=== PATIENT | female | born 1995 | race Caucasian/White ===

== ENCOUNTER 2024-12-24 17:42 | Emergency (ER) | payer OTHER, SELFPAY ==
[2024-12-24] VITALS (7 sets, daily range): BP systolic 110–127; BP diastolic 62–81; PULSE 59–77; RESP 16; TEMP 36.2; O2SAT 97–100; BMI 22.3
--- NOTE | 2024-12-24 18:00 | DI.RAD.S_ITS ---
PROCEDURE: XR CHEST 1V INDICATIONS: Chest Pain TECHNIQUE: One view of the chest was acquired. COMPARISON: [facility], CR, XR CHEST 2V, 03/09/2024, 9:42. FINDINGS: Surgical changes and devices: None. Lungs and pleura: Lungs are clear. No pleural effusions or pneumothorax. Mediastinum: Mediastinal contours appear normal. Heart size is normal. Bones and chest wall: No suspicious bony lesions. Overlying soft tissues appear unremarkable. IMPRESSION: No acute cardiopulmonary abnormality is seen. Dictated by: Brigida Massey M.D. on 12/24/2024 at 17:23 Approved by: Brigida Massey M.D. on 12/24/2024 at 17:24
--- NOTE | 2024-12-24 20:19 | ED.GENADULT ---
HPI - General Adult General Chief complaint: Syncope Stated complaint: light headed lost hearing nauseas head ache Time Seen by Provider: 12/24/24 18:10 History of Present Illness HPI narrative: Otherwise healthy 29-year-old young woman took a long hot shower and had a near syncopal episode when getting out of the shower today. Tunnel vision, loss of hearing, she did not fall but once she was helped to the floor she was feeling better. She had eaten prior to the episode. She has had similar episodes in the past some associated with exercise some associated with showers, hot tubs, bath tubs. She is on Depo and does not believe that she is . No fevers cough or chills. She has been training quite a bit recently for a [employer] next week. No chest pain, palpitations, dyspnea. No other complaints or concerns at this time Related Data Allergies Allergy/AdvReac Type Severity Reaction Status Date / Time No Known Drug Allergies Allergy Verified 12/24/24 17:57 Review of Systems Review of Systems Narrative: Pertinent positive and negative findings as per HPI Exam Initial Vital Signs Initial Vital Signs: Vital Signs Temperature 97.2 F L 12/24/24 17:53 Pulse Rate 74 12/24/24 17:53 Respiratory Rate 16 12/24/24 17:53 Blood Pressure 127/81 12/24/24 17:53 Pulse Oximetry 97 12/24/24 17:53 Oxygen Delivery Method Room Air 12/24/24 17:53 General: Alert appropriate in no acute distress Respiratory: Able to speak in full sentences, no obvious respiratory distress Cardiac, regular rate and rhythm Skin: No obvious rashes, warm and dry Neurologic: Grossly intact no obvious asymmetries or abnormalities Psych: appropriate insight and affect, cooperative Course Orders Ordered: ED Orders 12/24/24 18:00 XR chest 1V Stat Complete Blood Count AUTO DIFF Stat Comprehensive Metabolic Panel Stat Lipase Stat Magnesium Stat NT-proBNP (BNP-Adult 18+) Stat PTT Partial Thromboplastin Ananth Stat Prothrombin Time INR Stat Troponin & CK Cardiac Panel Stat EKG-12 Lead Stat Vital Signs Vital signs: Vital Signs - 8 hr 12/24/24 17:53 12/24/24 19:17 Temperature 97.2 F L Pulse Rate 74 Pulse Rate [Orthostatic Lying] 59 L Pulse Rate [Orthostatic Sitting] 77 Pulse Rate [Orthostatic Standing] 70 Respiratory Rate 16 Blood Pressure 127/81 Blood Pressure [Orthostatic Lying] 110/63 Blood Pressure [Orthostatic Sitting] 124/72 Blood Pressure [Orthostatic Standing] 116/69 Pulse Oximetry 97 Oxygen Delivery Method Room Air Medical Decision Making Lab Data Labs: Lab Results 12/24/24 Range/Units 18:03 POC Whole Bld Glucose 109 H (70-99) mg/dL MDM Narrative Medical decision making narrative: Otherwise healthy 29-year-old woman with vasovagal episode getting out of shower today. We negotiated IV hydration in lieu of 2 large glasses of water. She was able to drink the water without any difficulties, after this, repeated orthostatic vital signs which were completely normal. She is feeling back to her baseline. There was no evidence for , heart attack, GI bleeding, sepsis, acute coronary syndrome or pulmonary embolism. We spent a bit of time talking about reasons for orthostatic hypotension particularly in young woman who have baseline low blood pressure and are quite active. We talked about managing this with making sure that you are well hydrated, electrolyte solutions and carbohydrate snacks when needed. Encouraged her to can you continue her active lifestyle and wished her well with her [employer]. She is safe for discharge Discharge Plan Departure Patient Disposition: Home Clinical Impression: Syncope due to orthostatic hypotension Instructions: DI for Syncope in Adults (Fainting) Activity Restrictions/Additional Instructions: Thank you for coming in today Based on your description of the events in the fact that you are feeling so much better with drinking 2 large glasses of water I am very reassured. I do not see any evidence today to make me think about heart attacks, heart arrhythmias, illness, tumors or masses, blood clots in your lungs or any other findings that would require further workup or hospitalization I suspect that your blood vessels simply were dilated because you were in the warm shower and as you got out too much blood pooled in your legs. When your brain does not have the blood flow at wants, you have exactly the symptoms that you are experiencing including a sense that there is a tunnel closing down your vision, hearing changes and this can progress to actual passing out and even some seizure-type activity. 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 I hope that your climb up [employer] goes well next week! If you find that you are getting worse or develop any new symptoms, please feel free to return to the emergency department for further evaluation. Stand Alone Forms: Patient Portal/API
== END 2024-12-24 20:30 | disposition home or self-care (01) ==
PROVIDERS: Emergency Provider Emergency Medicine
DX: I95.1 Orthostatic hypotension (principal); R07.9 Chest pain, unspecified
CPT/HCPCS: 71045; 82962; 99282; 99283